=== PATIENT | male | born 1980 | race Caucasian/White ===

== ENCOUNTER 2016-06-24 08:50 | Emergency (ER) | payer SELFPAY ==
[2016-06-24 10:10] LABS: ABSOLUTE BASOPHILS # (AUTO) 0.1 10^3/uL (0.0-0.2); ABSOLUTE EOSINOPHILS # (AUTO) 0.3 10^3/uL (0.0-0.6); ABSOLUTE LYMPHOCYTES (AUTO) 2.5 10^3/uL (0.5-4.7); ABSOLUTE MONOCYTES (AUTO) 1.3 10^3/uL (0.1-1.4); ABSOLUTE NEUT (AUTO) 14.4 10^3/uL (1.7-8.2); BASOPHILS % (AUTO) 0.6 % (0-2); EOSINOPHILS % (AUTO) 1.7 % (0-6); HEMATOCRIT 46.8 % (37.9-51.0); HEMOGLOBIN 15.7 g/dL (13.5-17.0); HGB HCT DIFFERENCE 0.3; LYMPHOCYTES % (AUTO) 13.2 % (13-45); MEAN CORPUSCULAR HGB CONC 33.5 g/dL (32.0-36.0); MEAN CORPUSCULAR VOLUME 90 fl (80-97); MONOCYTES % (AUTO) 6.9 % (3-13); RED BLOOD COUNT 5.22 10^6/uL (4.35-5.55); RED CELL DISTRIBUTION WIDTH 13.8 % (11.5-14.0); SEGMENTED NEUTROPHILS % (AUTO) 77.6 % (42-78); WHITE BLOOD COUNT 18.6 10^3/uL (4.0-10.5)
[2016-06-24] MEDS ORDERED: HYDROMORPHONE HCL INJ/PF 2 MG/ML AMPULE IV ONE ×4 (10:19→13:34)
[2016-06-24] MEDS ORDERED: ONDANSETRON HCL INJ/PF 4 MG/2 ML SDV IV ONE (10:19)
[2016-06-24] MEDS: NORMAL SALINE 1000 ML 1,000 ML IV PRN ×3 (10:27→11:58)
[2016-06-24 10:33] LABS: ALANINE AMINOTRANSFERASE 47 U/L (21-72); ALBUMIN 3.7 g/dL (3.5-5.0); ALKALINE PHOSPHATASE 94 U/L (38-126); ANION GAP 13 (5-19); ASPARTATE AMINO TRANSFERASE 29 U/L (17-59); BILIRUBIN,TOTAL 1.1 mg/dL (0.2-1.3); BLOOD UREA NITROGEN 14 mg/dL (7-20); CALCIUM 9.9 mg/dL (8.4-10.2); CARBON DIOXIDE 21 mmol/L (22-30); CHLORIDE 107 mmol/L (98-107); CREATININE RESULT 0.91 mg/dL (0.52-1.25); GLUCOSE 115 mg/dL (75-110); POTASSIUM 4.2 mmol/L (3.6-5.0); SODIUM 140.7 mmol/L (137-145); TOTAL PROTEIN 6.9 g/dL (6.3-8.2)
[2016-06-24 10:49] LABS: LIPASE 3589.2 U/L (23-300)
[2016-06-24] MEDS ORDERED: NORMAL SALINE 1000 ML 1,000 ML IV PRN (10:54)
[2016-06-24] MEDS ORDERED: FAMOTIDINE INJ/PF 20 MG/2 ML SDV IV ONE (11:10)
--- NOTE | 2016-06-24 11:58 | ER Document Report ---
ED General - General Chief Complaint: Abdominal Pain Stated Complaint: FLANK PAIN Mode of Arrival: Ambulatory Information source: Patient Notes: 35-year-old male history of alcoholic pancreatitis presents with abd pain after drinking 2 days ago. pt denies any fevers or chills, denies any nausea or vomiting TRAVEL OUTSIDE OF THE [place] IN LAST 30 DAYS: No - HPI Onset: This morning Onset/Duration: Sudden Quality of pain: Sharp Severity: Mild Pain Level: 3 Associated symptoms: Other Exacerbated by: Denies Relieved by: Denies Similar symptoms previously: Yes Recently seen / treated by doctor: Yes - Related Data Allergies/Adverse Reactions: No Known Allergies Allergy (Verified 06/24/16 08:57) Past Medical History - Social History Smoking Status: Current Every Day Smoker Cigarette use (# per day): No Chew tobacco use (# tins/day): No Smoking Education Provided: No Frequency of alcohol use: Occasional Drug Abuse: None Family History: DM, Malignancy Patient has suicidal ideation: No Patient has homicidal ideation: No Renal/ Medical History: Denies: Hx Peritoneal Dialysis GI Medical History: Reports: Hx Gastroesophageal Reflux Disease Musculoskeltal Medical History: Reports Hx Musculoskeletal Deformity, Reports Hx Musculoskeletal Trauma Past Surgical History: Reports: Hx Orthopedic Surgery - left knee - Immunizations Immunizations up to date: Yes Hx Diphtheria, Pertussis, Tetanus Vaccination: Yes - over 5 years ago. Review of Systems - Review of Systems Notes: REVIEW OF SYSTEMS: CONSTITUTIONAL : Denies fever, chills, or sweats. Denies recent illness. EENT: Denies eye, ear, throat, or mouth pain or symptoms. Denies nasal or sinus congestion or discharge. Denies throat, tongue, or mouth swelling or difficulty swallowing. CARDIOVASCULAR: Denies chest pain. Denies palpitations or racing or irregular heart beat. Denies ankle edema. RESPIRATORY: Denies cough, cold, or chest congestion. Denies shortness of breath, difficulty breathing, or wheezing. GASTROINTESTINAL: admits ot abd pain GENITOURINARY: Denies difficulty urinating, painful urination, burning, frequency, blood in urine, or discharge. MUSCULOSKELETAL: Denies back or neck pain or stiffness. Denies joint pain or swelling. SKIN: Denies rash, lesions or sores. HEMATOLOGIC : Denies easy bruising or bleeding. LYMPHATIC: Denies swollen, enlarged glands. NEUROLOGICAL: Denies confusion or altered mental status. Denies passing out or loss of consciousness. Denies dizziness or lightheadedness. Denies headache. Denies weakness or paralysis or loss of use of either side. Denies problems with gait or speech. Denies sensory loss, numbness, or tingling. Denies seizures. PSYCHIATRIC: Denies anxiety or stress. Denies depression, suicidal ideation, or homicidal ideation. ALL OTHER SYSTEMS REVIEWED AND NEGATIVE. Dictation was performed using [employer] voice recognition software PHYSICAL EXAMINATION: GENERAL: Well-appearing, well-nourished and in no acute distress. HEAD: Atraumatic, normocephalic. EYES: Pupils equal round and reactive to light, extraocular movements intact, sclera anicteric, conjunctiva are normal. ENT: Nares patent, oropharynx clear without exudates. Moist mucous membranes. NECK: Normal range of motion, supple without lymphadenopathy LUNGS: Breath sounds clear to auscultation bilaterally and equal. No wheezes rales or rhonchi. HEART: Regular rate and rhythm without murmurs ABDOMEN: Soft, tenedr in the LUQ Musculoskeletal: Normal range of motion, no pitting or edema. No cyanosis. NEUROLOGICAL: Cranial nerves grossly intact. Normal speech, normal gait. Normal sensory, motor exams PSYCH: Normal mood, normal affect. SKIN: Warm, Dry, normal turgor, no rashes or lesions noted. Physical Exam - Vital signs Vitals: Temp Pulse Resp BP Pulse Ox 97.8 F 66 20 144/97 H 98 06/24/16 08:54 06/24/16 08:54 06/24/16 08:54 06/24/16 08:54 06/24/16 08:54 Course - Re-evaluation Re-evalutation: 06/24/16 11:59 Patient's white count is noted to be elevated secondary to pain, he will be hydrated given pain control emergency department otherwise has not been vomiting and is stable 06/24/16 13:34 Patient wishes to be discharged home, I did insisted that he consider admission but he refuses to stay. We'll do clear liquids at home After performing a Medical Screening Examination, I estimate there is LOW risk for ACUTE APPENDICITIS, BOWEL OBSTRUCTION, ACUTE CHOLECYSTITIS, PERFORATED DIVERTICULITIS, INCARCERATED HERNIA, or PERFORATED ULCER, thus I consider the discharge disposition reasonable. Also, there is no evidence or peritonitis, sepsis, or toxicity. The patient and I have discussed the diagnosis and risks, and we agree with discharging home with close follow-up with the understanding that symptoms and presentations can change. We also discussed returning to the Emergency Department immediately if new or worsening symptoms occur. We have discussed the symptoms which are most concerning (e.g., bloody stool, fever, changing or worsening pain, intractable vomiting - standard verbal up date) that necessitate immediate return. - Vital Signs Vital signs: Temp Pulse Resp BP Pulse Ox 97.8 F 66 20 144/97 H 98 06/24/16 08:54 06/24/16 08:54 06/24/16 08:54 06/24/16 08:54 06/24/16 08:54 - Laboratory Result Diagrams: 06/24/16 09:48 06/24/16 09:48 Laboratory results interpreted by me: 06/24/16 06/24/16 09:48 09:48 WBC 18.6 H Absolute Neutrophils 14.4 H Carbon Dioxide 21 L Glucose 115 H Lipase 3589.2 H Discharge - Discharge Clinical Impression: Alcohol cessation counseling Acute pancreatitis Qualifiers: Pancreatitis type: alcohol induced Acute pancreatitis complication: unspecified Qualified Code(s): K85.20 - Alcohol induced acute pancreatitis without necrosis or infection Abdominal pain Qualifiers: Abdominal location: left upper quadrant Qualified Code(s): R10.12 - Left upper quadrant pain Condition: Stable Disposition: HOME, SELF-CARE Instructions: Abdominal Pain ([facility]), Pancreatitis ([facility]) Prescriptions: Oxycodone HCl/Acetaminophen [Percocet 5-325 mg Tablet] 1 - 2 tab PO Q4H PRN #25 tablet PRN Reason: Promethazine HCl [Phenergan 25 mg Tablet] 1 - 2 tab PO Q6H PRN #15 tablet PRN Reason: Referrals: ROSA M BAKER MD [ACTIVE STAFF] - Follow up tomorrow
[2016-06-24 14:11] VITALS: BP 167/111
== END 2016-06-24 14:07 | disposition home or self-care (01) ==
LOC: ER 08:50
DX: K85.20 Alcohol induced acute pancreatitis without necrosis or infection (principal); R10.12 Left upper quadrant pain; F17.200 Nicotine dependence, unspecified, uncomplicated; Z87.19 Personal history of other diseases of the digestive system
CPT/HCPCS: 96376; 99284; 96361; 96374; 96375; 36415; 83690; 85025; 80053; J1170; J2405; J7030; S0028

== ENCOUNTER 2017-02-13 07:34 | Inpatient (IN) | payer SELFPAY ==
[2017-02-13] MEDS ORDERED: ONDANSETRON HCL INJ/PF 4 MG/2 ML SDV IV ONE (08:04)
[2017-02-13] MEDS ORDERED: NORMAL SALINE 1000 ML 1,000 ML IV ONE ×3 (08:04→12:39)
[2017-02-13] MEDS ORDERED: HYDROMORPHONE HCL INJ/PF 2 MG/ML AMPULE IV ONE ×3 (08:04→12:40)
--- NOTE | 2017-02-13 08:05 | ER Document Report ---
ED GI/ - General Chief Complaint: Abdominal Pain Stated Complaint: FLANK PAIN Time Seen by Provider: 02/13/17 07:57 Mode of Arrival: Ambulatory Information source: Patient Notes: Patient presents with a 2 day history of abdominal pain with nausea and vomiting. Patient states he is vomited about 4 times over the past 2 days. Patient denies any diarrhea, urinary symptoms, or fever. Patient states that he has had a history of pancreatitis in the past and suspects the same today. Patient states that he does drink beer daily but has not had any in the past few days due to his symptoms. TRAVEL OUTSIDE OF THE [place] IN LAST 30 DAYS: No - HPI Patient complains to provider of: Abdominal pain, Vomiting Onset: Other - 2 days Timing/Duration: Worse Quality of pain: Sharp Pain Level: 5 Location: Epigastric, Other - Umbilical Sexual history: Active Associated symptoms: Nausea, Vomiting. 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 Review of Systems - Review of Systems Constitutional: No symptoms reported. denies: Fever, Recent illness EENT: No symptoms reported Cardiovascular: No symptoms reported. denies: Chest pain Respiratory: No symptoms reported. denies: Cough, Short of breath Gastrointestinal: Abdominal pain, Nausea, Vomiting. denies: Diarrhea, Blood streaked bowels, Black stools, Rectal bleeding Genitourinary: No symptoms reported. denies: Dysuria, Flank pain Male Genitourinary: No symptoms reported Musculoskeletal: No symptoms reported Skin: No symptoms reported Hematologic/Lymphatic: No symptoms reported Neurological/Psychological: No symptoms reported Physical Exam - Vital signs Vitals: Temp Pulse Resp BP Pulse Ox 97.4 F 64 18 151/89 H 98 02/13/17 07:37 02/13/17 07:37 02/13/17 07:37 02/13/17 07:37 02/13/17 07:37 - General General appearance: Alert, Anxious In distress: Mild - HEENT Head: Normocephalic, Atraumatic Eyes: Normal Nasal: Normal Mouth/Lips: Normal Mucous membranes: Normal - Respiratory Respiratory status: No respiratory distress Chest status: Nontender Breath sounds: Normal. No: Rales, Rhonchi, Stridor, Wheezing Chest palpation: Normal - Cardiovascular Rhythm: Regular Heart sounds: S1 appreciated, S2 appreciated Murmur: No - Abdominal Inspection: Normal Distension: No distension Bowel sounds: Normal Tenderness: Tender - Right upper quadrant, epigastric tenderness, Guarding Organomegaly: No organomegaly - Back Back: Normal, Nontender. No: CVA tenderness - Extremities General upper extremity: Normal inspection, Normal ROM General lower extremity: Normal inspection, Normal ROM - Neurological Neuro grossly intact: Yes Cognition: Normal [place] Coma Scale Eye Opening: Spontaneous Gilda Coma Scale Verbal: Oriented [place] Coma Scale Motor: Obeys Commands Gilda Coma Scale Total: 15 - Psychological Associated symptoms: Normal affect, Normal mood - Skin Skin Temperature: Warm Skin Moisture: Dry Skin Color: Normal Course - Re-evaluation Re-evalutation: 02/13/17 09:[address] Hernandez who advises consultation with Dr. Jorgensen for admission 02/13/17 09:[address] Jorgensen who agrees to accept patient as IMCU admission - Vital Signs Vital signs: Temp Pulse Resp BP Pulse Ox 97.4 F 64 18 151/89 H 98 02/13/17 07:37 02/13/17 07:37 02/13/17 07:37 02/13/17 07:37 02/13/17 07:37 - Laboratory Result Diagrams: 02/13/17 08:18 02/13/17 08:18 Laboratory results interpreted by me: 02/13/17 02/13/17 02/13/17 08:13 08:18 08:18 WBC 25.0 H Hgb 17.1 H RDW 14.3 H Plt Count 455 H Seg Neuts % (Manual) 89 H Band Neutrophils % 1 L Lymphocytes % (Manual) 2 L Abs Neuts (Manual) 22.5 H Abs Monocytes (Manual) 1.8 H Sodium 135.7 L Chloride 94 L Carbon Dioxide 21 L Anion Gap 21 H BUN 44 H Creatinine 2.10 H Est GFR ( Amer) 43 L Est GFR (Non-Af Amer) 36 L Glucose 141 H Direct Bilirubin 0.7 H AST 64 H Alkaline Phosphatase 129 H Total Protein 9.9 H Albumin 5.3 H Lipase 2888.0 H Urine Protein 30 H Urine Ketones 20 H Discharge - Discharge Clinical Impression: Acute kidney injury Acute pancreatitis Qualifiers: Pancreatitis type: alcohol induced Acute pancreatitis complication: unspecified Qualified Code(s): K85.20 - Alcohol induced acute pancreatitis without necrosis or infection Leukocytosis Qualifiers: Leukocytosis type: unspecified Qualified Code(s): D72.829 - Elevated white blood cell count, unspecified Disposition: ADMITTED INPATIENT Admitting Provider: Hospitalist Unit Admitted: [facility]
[2017-02-13 08:41] LABS: HEMATOCRIT 47.6 % (37.9-51.0); HEMOGLOBIN 17.1 g/dL (13.5-17.0); HGB HCT DIFFERENCE 3.7; MEAN CORPUSCULAR HEMOGLOBIN 31.7 pg (27.0-33.4); MEAN CORPUSCULAR HGB CONC 35.8 g/dL (32.0-36.0); MEAN CORPUSCULAR VOLUME 88 fl (80-97); RED BLOOD COUNT 5.39 10^6/uL (4.35-5.55); RED CELL DISTRIBUTION WIDTH 14.3 % (11.5-14.0)
[2017-02-13 08:43] LABS: APPEARANCE,URINE SLIGHTLY-CLOUDY; BILIRUBIN,URINE NEGATIVE (NEGATIVE); GLUCOSE, URINE NEGATIVE (NEGATIVE); KETONES,URINE 20 mg/dL (NEGATIVE); LEUKOCYTE ESTERASE,URINE NEGATIVE (NEGATIVE); NITRITE,URINE NEGATIVE (NEGATIVE); PROTEIN,URINE 30 mg/dL (NEGATIVE); URINE SPECIFIC GRAVITY 1.021; UROBILINOGEN,URINE NEGATIVE mg/dL (<2.0)
--- NOTE | 2017-02-13 09:01 | RADIOLOGY REPORT (SQ) ---
EXAM DESCRIPTION: U/S ABDOMEN LIMITED W/O DOP COMPLETED DATE/TIME: 02/13/2017 8:40 am REASON FOR STUDY: upper abd pain, hx pancreatitis COMPARISON: 12/06/2015 TECHNIQUE: Dynamic and static grayscale images acquired of the abdomen and recorded on PACS. Additio rayne selected color Doppler and spectral images recorded. LIMITATIONS: None. FINDINGS: PANCREAS: No masses. Visualized pancreatic duct normal caliber. LIVER: No masses. Echotexture normal. LIVER VASCULATURE: Normal directional flow of the main portal vein and hepatic veins. GALLBLADDER: No stones. Normal wall thickness. No pericholecystic fluid. ULTRASOUND-DETECTED BURKETT'S SIGN: Negative. INTRAHEPATIC DUCTS AND COMMON DUCT: CBD and intrahepatic ducts normal caliber. No filling defects. INFERIOR VENA CAVA: Normal flow. AORTA: No aneurysm. RIGHT KIDNEY: Normal size. Normal echogenicity. No solid or suspicious masses. No hydronephrosis. No calcifications. PERITONEAL AND RIGHT PLEURAL SPACE: No ascites or effusions. OTHER: No other significant findings. IMPRESSION: NORMAL RIGHT UPPER QUADRANT ULTRASOUND. TECHNICAL DOCUMENTATION: JOB ID: [id number]- All Rights Reserved
[2017-02-13 09:10] LABS: BAND NEUTROPHILS % (MANUAL) 1 % (3-5); BASOPHILS % (MANUAL) 0 % (0-2); EOSINOPHILS % (MANUAL) 0 % (0-6); LYMPHOCYTES % (MANUAL) 2 % (13-45); TOTAL CELLS COUNTED 100
[2017-02-13 09:16] LABS: ANISOCYTOSIS SLIGHT; TOXIC GRANULATION 1+
[2017-02-13 09:23] LABS: ALANINE AMINOTRANSFERASE 27 U/L (21-72); ALBUMIN 5.3 g/dL (3.5-5.0); ALKALINE PHOSPHATASE 129 U/L (38-126); ASPARTATE AMINO TRANSFERASE 64 U/L (17-59); BILIRUBIN,DIRECT 0.7 mg/dL (0.0-0.4); BLOOD UREA NITROGEN 44 mg/dL (7-20); CALCIUM 10.1 mg/dL (8.4-10.2); CARBON DIOXIDE 21 mmol/L (22-30); CHLORIDE 94 mmol/L (98-107); GLUCOSE 141 mg/dL (75-110); SODIUM 135.7 mmol/L (137-145); TOTAL PROTEIN 9.9 g/dL (6.3-8.2)
[2017-02-13 09:30] LABS: ANION GAP 21 (5-19)
[2017-02-13] MEDS ORDERED: PROMETHAZINE HCL 25 MG SUPP.RECT PR PRN (09:55)
[2017-02-13] MEDS ORDERED: ACETAMINOPHEN 650 MG SUPP.RECT PR PRN (09:55)
[2017-02-13] MEDS ORDERED: ONDANSETRON HCL INJ/PF 4 MG/2 ML SDV IV PRN (09:55)
[2017-02-13] MEDS ORDERED: HYDROMORPHONE HCL INJ/PF 2 MG/ML AMPULE IV PRN (10:00)
[2017-02-13] MEDS: PANTOPRAZOLE SODIUM 40 MG VIAL IV SCH ×2 (10:33→22:05)
[2017-02-13] MEDS ORDERED: LORAZEPAM INJ 2 MG/1 ML VIAL IV ONE (12:39)
[2017-02-13] MEDS ORDERED: LORAZEPAM INJ 2 MG/1 ML VIAL ONE (12:46)
[2017-02-13] MEDS ORDERED: HYDROMORPHONE HCL INJ/PF 2 MG/ML AMPULE ONE (12:47)
[2017-02-13] MEDS ORDERED: NICOTINE 21 MG/24 HR PATCH.TD24 TD ONE (15:00)
--- NOTE | 2017-02-13 15:01 | PDOC H&P ---
History of Present Illness Admission Date/PCP: 02/13/17 09:55 no pcp History of Present Illness: KANDI BURNS III is a 36 year old male with a past medical history significant for prior alcoholic pancreatitis who presents to the emergency department with 2 or 3 days of nausea, vomiting and midepigastric pain. He reports it radiates through to his back. He reports that significant vomiting episodes with this. An attempt to control his symptoms he was taking between 600 and 800 mg of Motrin 3 times daily. Patient reports that he drinks 1 beer daily, but his significant other confides to nursing that he drinks a minimum of 4 beers daily. He has not been able to drink since the onset of this pain. Patient was found in the emergency department to have a lipase of 2888 and acute renal failure with a BUN of 44 and a creatinine of 2.1. He is referred to the hospitalist service for admission. Past Medical History GI Medical History: Reports: Gastroesophageal Reflux Disease, Other - pancreatitis Psychiatric Medical History: Reports: Alcohol Dependency Past Surgical History Past Surgical History: Reports: Orthopedic Surgery - left knee Social History Lives with: Family Smoking Status: Current Every Day Smoker Cigarettes Packs Per Day: 1 Number of Years Smokin Frequency of Alcohol Use: Heavy Hx Recreational Drug Use: No Drugs: None Hx Prescription Drug Abuse: No - Advance Directive Resuscitation Status: Full Code Surrogate healthcare decision maker:: Iwona Menezes, significant other Family History Family History: DM, Malignancy Parental Family History Reviewed: Yes Children Family History Reviewed: Yes Sibling(s) Family History Reviewed.: Yes Medication/Allergy Home Medications: Ibuprofen [Ibuprofen Ib] 800 mg PO DAILYP PRN 02/13/17 Allergies/Adverse Reactions: No Known Allergies Allergy (Verified 06/24/16 08:57) Review of Systems Constitutional: ABSENT: chills, fever(s), headache(s), weight gain, weight loss Eyes: ABSENT: visual disturbances Ears: ABSENT: hearing changes Cardiovascular: ABSENT: chest pain, dyspnea on exertion, edema, orthropnea, palpitations Respiratory: ABSENT: cough, hemoptysis Gastrointestinal: PRESENT: abdominal pain, heartburn, nausea, vomiting. ABSENT : constipation, diarrhea, hematemesis, hematochezia, melena Genitourinary: ABSENT: dysuria, hematuria Musculoskeletal: ABSENT: joint swelling Integumentary: ABSENT: rash, wounds Neurological: ABSENT: abnormal gait, abnormal speech, confusion, dizziness, focal weakness, syncope Psychiatric: ABSENT: anxiety, depression, homidical ideation, suicidal ideation Endocrine: ABSENT: cold intolerance, heat intolerance, polydipsia, polyuria Hematologic/Lymphatic: ABSENT: easy bleeding, easy bruising Physical Exam Vital Signs: Temp Pulse Resp BP Pulse Ox 97.7 F 55 L 22 H 176/95 H 97 02/13/17 11:16 02/13/17 11:16 02/13/17 11:08 02/13/17 11:16 02/13/17 11:16 Intake & Output 02/12/17 02/13/17 02/14/17 06:59 06:59 06:59 Weight 75.7 kg General appearance: PRESENT: mild distress - Pain, well-developed, well- nourished Head exam: PRESENT: atraumatic, normocephalic Eye exam: PRESENT: conjunctiva pink, EOMI, PERRLA. ABSENT: conjunctival injection, scleral icterus Ear exam: PRESENT: normal external ear exam Mouth exam: PRESENT: dry mucosa, tongue midline Neck exam: ABSENT: JVD, lymphadenopathy, thyromegaly, tracheal deviation Respiratory exam: PRESENT: clear to auscultation lupis, tachypnea, unlabored. ABSENT: accessory muscle use, crackles, rales, retraction, rhonchi, wheezes Cardiovascular exam: PRESENT: RRR, +S1, +S2. ABSENT: diastolic murmur, gallop, rubs, systolic murmur Pulses: PRESENT: normal dorsalis pedis pul Vascular exam: PRESENT: normal capillary refill GI/Abdominal exam: PRESENT: guarding - Voluntary, hypoactive bowel sounds, soft , tenderness - Significant diffuse tenderness, localized to mid epigastrium and right upper quadrant. ABSENT: distended, firm, mass, organolmegaly, rebound Rectal exam: PRESENT: deferred Extremities exam: PRESENT: full ROM. ABSENT: calf tenderness, clubbing, pedal edema Neurological exam: PRESENT: alert, awake, oriented to person, oriented to place , oriented to time, oriented to situation, CN II-XII grossly intact. ABSENT: motor sensory deficit Psychiatric exam: PRESENT: appropriate affect, normal mood. ABSENT: homicidal ideation, suicidal ideation Skin exam: PRESENT: dry, intact, warm. ABSENT: cyanosis, rash Results Laboratory Results: 02/13/17 02/13/17 02/13/17 08:18 08:18 08:18 WBC 25.0 H Hgb 17.1 H Hct 47.6 Plt Count 455 H Seg Neuts % (Manual) 89 H Sodium 135.7 L Potassium 4.0 Chloride 94 L Carbon Dioxide 21 L Anion Gap 21 H BUN 44 H Creatinine 2.10 H Glucose 141 H POC Glucose Calcium 10.1 Magnesium 2.5 H Total Bilirubin 1.0 Direct Bilirubin 0.7 H AST 64 H ALT 27 Alkaline Phosphatase 129 H Total Protein 9.9 H Albumin 5.3 H Lipase 2888.0 H 02/13/17 12:18 WBC Hgb Hct Plt Count Seg Neuts % (Manual) Sodium Potassium Chloride Carbon Dioxide Anion Gap BUN Creatinine Glucose POC Glucose 139 H Calcium Magnesium Total Bilirubin Direct Bilirubin AST ALT Alkaline Phosphatase Total Protein Albumin Lipase 05/06/16 07:18 Triglycerides 190 H Impressions: Abdomen Ultrasound 02/13/17 08:03 IMPRESSION: NORMAL RIGHT UPPER QUADRANT ULTRASOUND. Status: Imported from PACS Assessment & Plan - Diagnosis (1) Acute alcoholic pancreatitis Qualifiers: Acute pancreatitis complication: unspecified Qualified Code(s): K85.20 - Alcohol induced acute pancreatitis without necrosis or infection Is this a current diagnosis for this admission?: Yes Plan: Patient's pancreatitis secondary to alcohol abuse. Patient had triglycerides done approximately 1 year ago for similar episode and were mildly elevated. Patient has had ultrasound performed which does not reveal any gallstones. Place patient on IMCU. Monitor for arrhythmia. Patient's [place] 2 score equals 4 and his Bisap score equals 2. Will obtain an LDH and monitor patient's Mira score. Obtain a CRP. Patient made n.p.o. and given Dilaudid as needed pain.He has been given normal saline for IV fluids. Given patient's presence of sirs have concern for underlying pancreatic necrosis. Obtain blood cultures and urine culture. Initiated on ertapenem. And obtain CT of the abdomen without contrast. (2) SIRS (systemic inflammatory response syndrome) Is this a current diagnosis for this admission?: Yes Plan: Criteria: Selected Entries 02/13/17 07:40 Pulse Rate 93 02/13/17 08:18 WBC 25.0 H Given patient's presence of sirs have concern for underlying pancreatic necrosis +/- infection. Obtain blood cultures and urine culture. Initiated on ertapenem. And obtain CT of the abdomen without contrast. (3) Acute renal failure Qualifiers: Acute renal failure type: unspecified Qualified Code(s): N17.9 - Acute kidney failure, unspecified Is this a current diagnosis for this admission?: Yes Plan: Secondary to dehydration, but given the amount of ibuprofen patient has been taking, have concerns for acute interstitial nephritis. Will obtain urine eosinophils. Continue hydration. Further complicated by underlying pancreatitis (4) Tobacco abuse Is this a current diagnosis for this admission?: Yes Plan: Nicotine patch (5) Alcohol abuse Is this a current diagnosis for this admission?: Yes Plan: Thiamine, folic acid, multivitamin Ativan as needed withdrawal (6) Hyponatremia Is this a current diagnosis for this admission?: Yes Plan: Secondary to intravascular volume depletion placed on normal saline (7) Impaired fasting glucose Is this a current diagnosis for this admission?: Yes Plan: Check hemoglobin A1c Family history of diabetes - Time Time Spent: 50 to 70 Minutes Medications reviewed and adjusted accordingly: Yes - Inpatient Certification Based on my medical assessment, after consideration of the patient's comorbidities, presenting symptoms, or acuity I expect that the services needed warrant INPATIENT care.: Yes I certify that my determination is in accordance with my understanding of Medicare's requirements for reasonable and necessary INPATIENT services [42 CFR 412.3e].: Yes Medical Necessity: Need For IV Fluids, Need For Continuous Telemetry Monitoring , Need for Pain Control, Need for IV Antibiotics Post Hospital Care: D/C Car 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
[2017-02-13] MEDS: HEPARIN SOD (PORCINE) 5,000 UNIT/ML 1 ML SYRINGE SUBCUT SCH ×2 (15:36→22:05)
[2017-02-13 15:38] LABS: C-REACTIVE PROTEIN 15.5 mg/L (<10.0)
[2017-02-13] MEDS: ERTAPENEM SODIUM 1 GM in NORMAL SALINE 50 ML IV SCH (15:40)
[2017-02-13] MEDS: NORMAL SALINE 1000 ML 1,000 ML IV PRN ×2 (15:42→20:58)
--- NOTE | 2017-02-13 15:45 | RADIOLOGY REPORT (SQ) ---
EXAM DESCRIPTION: CT ABD/PELVIS NO ORAL OR IV COMPLETED DATE/TIME: 02/13/2017 3:24 pm REASON FOR STUDY: pancreatic necrosis COMPARISON: None. TECHNIQUE: CT scan of the abdomen and pelvis performed without intravenous or oral contrast. Images reviewed with lung, soft tissue, and bone windows. Reconstructed coronal and sagittal MPR images revi ewed. All images stored on PACS. All CT scanners at this facility use dose modulation, iterative reconstruction, and/or weight based d osing when appropriate to reduce radiation dose to as low as reasonably achievable (ALARA). [facility]: Dose Right [facility]: CareDose [facility]: Dose Right [facility]: Teradose 4D [facility]: Smart Learn with [place] RADIATION DOSE: Up-to-date CT equipment and radiation dose reduction techniques were employed. CTDIv ol: 4.1 mGy. DLP: 239 mGy-cm.mGy. LIMITATIONS: Patient motion. FINDINGS: LOWER CHEST: No significant findings. No nodules or infiltrates. NON-CONTRASTED LIVER, SPLEEN, ADRENALS: Evaluation limited by lack of IV contrast. No identified sign ificant masses. PANCREAS: Inflammatory changes surrounding the pancreas. No obvious necrosis however sensitivity is lower without intravenous contrast. No obvious pseudocyst. GALLBLADDER: No identified stones by CT criteria. No inflammatory changes to suggest cholecystitis. RIGHT KIDNEY AND URETER: No suspicious masses. Assessment limited by lack of IV contrast. No signif icant calcifications. No hydronephrosis or hydroureter. LEFT KIDNEY AND URETER: No suspicious masses. Assessment limited by lack of IV contrast. 1 mm renal calculus. No hydronephrosis or hydroureter. AORTA AND RETROPERITONEUM: No aneurysm. No retroperitoneal masses or adenopathy. BOWEL AND PERITONEAL CAVITY: No obvious masses or inflammatory changes. No free fluid. APPENDIX: Not visualized. PELVIS, BLADDER, AND ABDOMINAL WALL:No abnormal masses. No free fluid. Bladder normal. BONES: No significant findings. OTHER: No other significant finding. IMPRESSION: Acute pancreatitis. COMMENT: Quality ID # [id number]: Final reports with documentation of one or more dose reduction techniques (e.g., Automated exposure control, adjustment of the mA and/or kV according to patient size, use of iterative reconstruction technique) TECHNICAL DOCUMENTATION: JOB ID: [id number]- All Rights Reserved
[2017-02-13] MEDS: HYDROMORPHONE HCL INJ/PF 2 MG/ML AMPULE IV PRN ×4 (15:54→22:33)
[2017-02-13] MEDS: NORMAL SALINE 1000 ML 1,000 ML with POTASSIUM CHLORIDE 20 MEQ, MAGNESIUM SULFATE 8 MEQ,... IV SCH ×5 (17:50)
[2017-02-14] MEDS: HYDROMORPHONE HCL INJ/PF 2 MG/ML AMPULE IV PRN ×7 (00:27→20:13)
[2017-02-14] MEDS: NORMAL SALINE 1000 ML 1,000 ML IV PRN ×3 (01:01→12:58)
[2017-02-14] MEDS: LORAZEPAM INJ 2 MG/1 ML VIAL IV PRN ×3 (01:01→17:45)
[2017-02-14 05:21] LABS: HEMATOCRIT 46.7 % (37.9-51.0); HEMOGLOBIN 16.2 g/dL (13.5-17.0); HGB HCT DIFFERENCE 1.9; MEAN CORPUSCULAR HEMOGLOBIN 31.5 pg (27.0-33.4); MEAN CORPUSCULAR HGB CONC 34.7 g/dL (32.0-36.0); MEAN CORPUSCULAR VOLUME 91 fl (80-97); RED BLOOD COUNT 5.15 10^6/uL (4.35-5.55); RED CELL DISTRIBUTION WIDTH 14.1 % (11.5-14.0); WHITE BLOOD COUNT 22.3 10^3/uL (4.0-10.5)
[2017-02-14] MEDS: HEPARIN SOD (PORCINE) 5,000 UNIT/ML 1 ML SYRINGE SUBCUT SCH ×3 (05:30→21:49)
[2017-02-14 05:34] LABS: BASOPHILS % (MANUAL) 0 % (0-2); EOSINOPHILS % (MANUAL) 0 % (0-6); LYMPHOCYTES % (MANUAL) 0 % (13-45); TOTAL CELLS COUNTED 100
[2017-02-14 05:35] LABS: ANISOCYTOSIS SLIGHT; TOXIC GRANULATION 1+
[2017-02-14 06:12] LABS: ALANINE AMINOTRANSFERASE 22 U/L (21-72); ALBUMIN 3.5 g/dL (3.5-5.0); ALKALINE PHOSPHATASE 83 U/L (38-126); ANION GAP 9 (5-19); ASPARTATE AMINO TRANSFERASE 18 U/L (17-59); BILIRUBIN,DIRECT 0.4 mg/dL (0.0-0.4); BILIRUBIN,TOTAL 0.8 mg/dL (0.2-1.3); CALCIUM 8.9 mg/dL (8.4-10.2); CARBON DIOXIDE 25 mmol/L (22-30); CHLORIDE 106 mmol/L (98-107); CREATININE RESULT 0.72 mg/dL (0.52-1.25); GLUCOSE 120 mg/dL (75-110); POTASSIUM 4.9 mmol/L (3.6-5.0); TOTAL PROTEIN 6.5 g/dL (6.3-8.2)
[2017-02-14 06:24] LABS: BLOOD UREA NITROGEN 17 mg/dL (7-20)
[2017-02-14] MEDS: NICOTINE 21 MG/24 HR PATCH.TD24 TD SCH (09:44)
[2017-02-14] MEDS: PANTOPRAZOLE SODIUM 40 MG VIAL IV SCH ×2 (09:44→21:49)
--- NOTE | 2017-02-14 12:44 | PDOC PROGRESS REPORT ---
Subjective Progress Note for:: 02/14/17 Subjective:: Patient continues to complain of abdominal pain. He requests something to eat and I have informed him why he is NPO. Patient denies chest pain, shortness of breath, nausea, vomiting, fevers, chills , diarrhea, constipation, headache, new onset weakness. Physical Exam Vital Signs: Temp Pulse Resp BP Pulse Ox 97.8 F 93 19 155/87 H 93 02/14/17 03:56 02/14/17 03:56 02/14/17 03:56 02/14/17 03:56 02/14/17 03:56 Intake & Output 02/13/17 02/14/17 02/15/17 06:59 06:59 06:59 Intake Total 3878 Output Total 1335 Balance 2543 Weight 75.7 kg Exam: General: In mild pain, Awake alert and oriented x3, no acute respiratory distress HEENT: AT/NC, PERRL, EOMI, oropharynx is moist, pink, no scleral icterus, no conjunctival injection Neck: No JVD, trachea midline Chest: Clear to auscultation bilaterally, no wheezes rhonchi or rales CV: Regular rate and rhythm, normal S1 and S2, no murmur, rub, or gallop Abdomen: Soft, TTP-teofilo and RUQ, nondistended, hypoactive bowel sounds; no rebound, rigidity; voluntary guarding Extremities: No cyanosis, clubbing or edema Neuro: Cranial nerves II through XII are grossly intact without focal deficits; awake alert and oriented x3, mildly tremulous Psych: Normal mood and affect Results Laboratory Results: 02/14/17 04:26 02/14/17 05:41 02/13/17 02/14/17 02/14/17 14:59 04:26 04:26 WBC 22.3 H RBC 5.15 Hgb 16.2 Hct 46.7 MCV 91 MCH 31.5 MCHC 34.7 RDW 14.1 H Plt Count 306 Seg Neutrophils % Not Reportable Lymphocytes % Not Reportable Monocytes % Not Reportable Eosinophils % Not Reportable Basophils % Not Reportable Absolute Neutrophils Not Reportable Absolute Lymphocytes Not Reportable Absolute Monocytes Not Reportable Absolute Eosinophils Not Reportable Absolute Basophils Not Reportable Sodium Cancelled Potassium Cancelled Chloride Cancelled Carbon Dioxide Cancelled Anion Gap Cancelled BUN Cancelled Creatinine Cancelled Est GFR ( Amer) Cancelled Est GFR (Non-Af Amer) Cancelled Glucose Cancelled Calcium Cancelled Magnesium Cancelled Total Bilirubin Cancelled AST Cancelled ALT Cancelled Alkaline Phosphatase Cancelled C-Reactive Protein 15.5 H Total Protein Cancelled Albumin Cancelled 02/14/17 05:41 WBC RBC Hgb Hct MCV MCH MCHC RDW Plt Count Seg Neutrophils % Lymphocytes % Monocytes % Eosinophils % Basophils % Absolute Neutrophils Absolute Lymphocytes Absolute Monocytes Absolute Eosinophils Absolute Basophils Sodium 140.0 Potassium 4.9 Chloride 106 Carbon Dioxide 25 Anion Gap 9 BUN 17 D Creatinine 0.72 Est GFR ( Amer) > 60 Est GFR (Non-Af Amer) > 60 Glucose 120 H Calcium 8.9 Magnesium 2.0 Total Bilirubin 0.8 AST 18 ALT 22 Alkaline Phosphatase 83 C-Reactive Protein Total Protein 6.5 Albumin 3.5 Impressions: Abdomen/Pelvis CT 02/13/17 00:00 IMPRESSION: Acute pancreatitis. Abdomen Ultrasound 02/13/17 08:03 IMPRESSION: NORMAL RIGHT UPPER QUADRANT ULTRASOUND. Assessment & Plan - Diagnosis (1) Acute alcoholic pancreatitis Qualifiers: Acute pancreatitis complication: unspecified Qualified Code(s): K85.20 - Alcohol induced acute pancreatitis without necrosis or infection Is this a current diagnosis for this admission?: Yes Plan: Patient's pancreatitis secondary to alcohol abuse. Patient had triglycerides done approximately 1 year ago for similar episode and were mildly elevated. Patient has had ultrasound performed which does not reveal any gallstones. Patient's [place] 2 score equals 2 and his Bisap score equals 1. Patient made n.p.o. and use Dilaudid as needed pain. On NS for fluids. On ertapenem day#2. Uncontrasted CT reveals pancreatitis. Patient pain mildly out of proportion to physical exam and can be redirected. (2) SIRS (systemic inflammatory response syndrome) Is this a current diagnosis for this admission?: Yes Plan: Criteria: Selected Entries 02/13/17 07:40 Pulse Rate 93 02/13/17 08:18 WBC 25.0 H Given patient's presence of sirs have concern for underlying pancreatic necrosis +/- infection. On Ertapenem day #2. (3) Acute renal failure Qualifiers: Acute renal failure type: unspecified Qualified Code(s): N17.9 - Acute kidney failure, unspecified Is this a current diagnosis for this admission?: Yes Plan: resolved / #1 (4) Tobacco abuse Is this a current diagnosis for this admission?: Yes Plan: Nicotine patch (5) Alcohol abuse Is this a current diagnosis for this admission?: Yes Plan: Thiamine, folic acid, multivitamin Ativan as needed withdrawal (6) Hyponatremia Is this a current diagnosis for this admission?: Yes Plan: Improved Secondary to intravascular volume depletion placed on normal saline (7) Impaired fasting glucose Is this a current diagnosis for this admission?: Yes Plan: Hgb A1c 5 - Time Time Spent with patient: 25-34 minutes Medications reviewed and adjusted accordingly: Yes Anticipated discharge: Home Within: within 72 hours
[2017-02-14] MEDS: ERTAPENEM SODIUM 1 GM in NORMAL SALINE 50 ML IV SCH (13:31)
[2017-02-14] MEDS: NORMAL SALINE 1000 ML 1,000 ML with POTASSIUM CHLORIDE 20 MEQ, MAGNESIUM SULFATE 8 MEQ,... IV SCH ×5 (17:11)
[2017-02-15] MEDS: HYDROMORPHONE HCL INJ/PF 2 MG/ML AMPULE IV PRN ×6 (01:07→20:09)
[2017-02-15 06:04] LABS: ALANINE AMINOTRANSFERASE 14 U/L (21-72); ALKALINE PHOSPHATASE 75 U/L (38-126); ANION GAP 10 (5-19); ASPARTATE AMINO TRANSFERASE 20 U/L (17-59); BILIRUBIN,DIRECT 0.5 mg/dL (0.0-0.4); BILIRUBIN,TOTAL 0.9 mg/dL (0.2-1.3); BLOOD UREA NITROGEN 10 mg/dL (7-20); CALCIUM 8.3 mg/dL (8.4-10.2); CARBON DIOXIDE 20 mmol/L (22-30); CHLORIDE 110 mmol/L (98-107); CREATININE RESULT 0.63 mg/dL (0.52-1.25); GLUCOSE 85 mg/dL (75-110); LDH 451 U/L (313-618); PHOSPHORUS 1.7 mg/dL (2.5-4.5); SODIUM 140.4 mmol/L (137-145)
[2017-02-15 06:05] LABS: ABSOLUTE BASOPHILS # (AUTO) 0.1 10^3/uL (0.0-0.2); ABSOLUTE LYMPHOCYTES (AUTO) 1.5 10^3/uL (0.5-4.7); ABSOLUTE MONOCYTES (AUTO) 1.4 10^3/uL (0.1-1.4); BASOPHILS % (AUTO) 0.3 % (0-2); EOSINOPHILS % (AUTO) 0.1 % (0-6); HEMATOCRIT 42.2 % (37.9-51.0); HEMOGLOBIN 14.6 g/dL (13.5-17.0); HGB HCT DIFFERENCE 1.6; MEAN CORPUSCULAR HEMOGLOBIN 31.3 pg (27.0-33.4); MEAN CORPUSCULAR HGB CONC 34.6 g/dL (32.0-36.0); MEAN CORPUSCULAR VOLUME 90 fl (80-97); MONOCYTES % (AUTO) 7.6 % (3-13); RED BLOOD COUNT 4.67 10^6/uL (4.35-5.55); RED CELL DISTRIBUTION WIDTH 14.3 % (11.5-14.0)
[2017-02-15] MEDS: HEPARIN SOD (PORCINE) 5,000 UNIT/ML 1 ML SYRINGE SUBCUT SCH ×3 (06:15→22:43)
[2017-02-15 06:46] LABS: C-REACTIVE PROTEIN 156.6 mg/L (<10.0)
[2017-02-15 06:51] LABS: POTASSIUM 3.7 mmol/L (3.6-5.0)
[2017-02-15] MEDS ORDERED: POTASSIUM PHOS,M-BASIC-D-BASIC 60 MMOL in NORMAL SALINE 1000 ML 1,000 ML IV ONE (07:05)
[2017-02-15] MEDS: NORMAL SALINE 1000 ML 1,000 ML IV PRN (07:51)
[2017-02-15] MEDS ORDERED: NORMAL SALINE 1000 ML 1,000 ML IV ONE (09:15)
[2017-02-15] MEDS: PANTOPRAZOLE SODIUM 40 MG VIAL IV SCH ×2 (10:41→22:43)
[2017-02-15] MEDS: NICOTINE 21 MG/24 HR PATCH.TD24 TD SCH (10:41)
[2017-02-15] MEDS: LORAZEPAM INJ 2 MG/1 ML VIAL IV PRN (10:41)
--- NOTE | 2017-02-15 10:55 | RADIOLOGY REPORT (SQ) ---
EXAM DESCRIPTION: CT ABD/PELVIS WITH IV ONLY COMPLETED DATE/TIME: 02/15/2017 10:40 am REASON FOR STUDY: necrotic pancreatitis COMPARISON: 02/13/2017 and 05/05/2016. TECHNIQUE: CT scan of the abdomen and pelvis performed using helical scanning technique with dynamic intravenous contrast injection. No oral contrast. Images reviewed with lung, soft tissue, and bone windows. Reconstructed coronal and sagittal MPR images reviewed. Delayed images for evaluation of the urinary system also acquired. All images stored on PACS. All CT scanners at this facility use dose modulation, iterative reconstruction, and/or weight based d osing when appropriate to reduce radiation dose to as low as reasonably achievable (ALARA). [facility]: Dose Right [facility]: CareDose [facility]: Dose Right [facility]: Teradose 4D [facility]: DailyLook CONTRAST TYPE AND DOSE: contrast/concentration: Isovue 370.00 mg/ml; Total Contrast Delivered: 81.0 ml; Total Saline Delivered: 42.0 ml RENAL FUNCTION: BUN 10 creatinine 0.63. RADIATION DOSE: Up-to-date CT equipment and radiation dose reduction techniques were employed. CTDIv ol: 6.0 - 8.5 mGy. DLP: 817 mGy-cm.. LIMITATIONS: None. FINDINGS: LOWER CHEST: Lower lobe infiltrates, left greater than right. LIVER: Normal size. Attenuation area in the left lobe, possibly a cyst or focal fatty replacement. No enhancing masses. No dilated ducts. SPLEEN: Normal size. No focal lesions. PANCREAS: Indistinct appearance of the pancreas with peripancreatic inflammation and fluid. Indistin ct area of low-attenuation in the pancreatic head measuring approximately 1 cm GALLBLADDER: No identified stones by CT criteria. No inflammatory changes to suggest cholecystitis. ADRENAL GLANDS: No significant masses or asymmetry. RIGHT KIDNEY AND URETER: No solid masses. No significant calcifications. No hydronephrosis or hyd roureter. LEFT KIDNEY AND URETER: No solid masses. No significant calcifications. No hydronephrosis or hydr oureter. AORTA AND VESSELS: No aneurysm. No dissection. Renal arteries, SMA, celiac without stenosis. RETROPERITONEUM: No retroperitoneal adenopathy, hemorrhage or masses. BOWEL AND PERITONEAL CAVITY: No masses or inflammatory changes. Small amount free fluid. APPENDIX: Not visualized. PELVIS: No mass. Free fluid in the lower pelvis. Normal bladder. ABDOMINAL WALL: No masses. No hernias. BONES: No significant or acute findings. OTHER: No other significant finding. IMPRESSION: 1. FINDINGS OF ACUTE PANCREATITIS. INDISTINCT AREA OF DECREASED ATTENUATION/NONENHANCEMENT IN THE PA NCREATIC HEAD COULD REPRESENT DEVELOPING CYST. SMALL FOCAL AREA OF NECROSIS COULD ALSO BE PRESENT. FREE FLUID IN THE ABDOMEN AND PELVIS SECONDARY TO PANCREATITIS. 2. NONENHANCING LOW-ATTENUATION AREA IN THE LEFT LOBE OF THE LIVER, POSSIBLY A CYST OR FOCAL FATTY RE PLACEMENT. 3. NO OTHER SIGNIFICANT OR ACUTE FINDING IN THE ABDOMEN OR PELVIS ON CT SCAN WITH IV CONTRAST. TECHNICAL DOCUMENTATION: JOB ID: [id number] Quality ID # [id number]: Final reports with documentation of one or more dose reduction techniques (e.g., Au tomated exposure control, adjustment of the mA and/or kV according to patient size, use of iterative reconstruction technique) 2010 [employer]- All Rights Reserved
[2017-02-15] MEDS: POTASSI CL 20 MEQ/D5-1/2NS 1L 1,000 ML IV PRN ×2 (12:54→20:09)
[2017-02-15] MEDS: ERTAPENEM SODIUM 1 GM in NORMAL SALINE 50 ML IV SCH (14:04)
--- NOTE | 2017-02-15 14:33 | PDOC PROGRESS REPORT ---
Subjective Progress Note for:: 02/15/17 Subjective:: Patient continues to complain of abdominal pain. He reports his pain is better controlled with the increased amount of Dilaudid. He is not passing flatus. Patient denies chest pain, shortness of breath, nausea, vomiting, fevers, chills , diarrhea, constipation, headache, new onset weakness. Physical Exam Vital Signs: Temp Pulse Resp BP Pulse Ox 98.3 F 104 H 16 150/86 H 94 02/14/17 23:29 02/15/17 02:00 02/14/17 23:29 02/14/17 23:29 02/14/17 23:29 Intake & Output 02/14/17 02/15/17 02/16/17 06:59 06:59 06:59 Intake Total 3878 6028 Output Total 1335 600 Balance 2543 5428 Weight 75.7 kg Exam: General: Awake alert and oriented x3, no acute respiratory distress HEENT: AT/NC, PERRL, EOMI, oropharynx is moist, pink, no scleral icterus, no conjunctival injection Neck: No JVD, trachea midline Chest: Clear to auscultation bilaterally, no wheezes rhonchi or rales CV: Regular rate and rhythm, normal S1 and S2, no murmur, rub, or gallop Abdomen: Soft, TTP-teofilo and RUQ, nondistended, hypoactive bowel sounds; no rebound, rigidity; voluntary guarding Extremities: No cyanosis, clubbing or edema Neuro: Cranial nerves II through XII are grossly intact without focal deficits; awake alert and oriented x3 Psych: Normal mood and affect Results Laboratory Results: 02/15/17 05:29 02/15/17 05:29 02/15/17 02/15/17 05:29 05:29 WBC 19.0 H RBC 4.67 Hgb 14.6 Hct 42.2 MCV 90 MCH 31.3 MCHC 34.6 RDW 14.3 H Plt Count 233 Seg Neutrophils % 84.0 H Lymphocytes % 8.0 L Monocytes % 7.6 Eosinophils % 0.1 Basophils % 0.3 Absolute Neutrophils 16.0 H Absolute Lymphocytes 1.5 Absolute Monocytes 1.4 Absolute Eosinophils 0.0 Absolute Basophils 0.1 Sodium 140.4 Potassium 3.7 D Chloride 110 H Carbon Dioxide 20 L Anion Gap 10 BUN 10 Creatinine 0.63 Est GFR ( Amer) > 60 Est GFR (Non-Af Amer) > 60 Glucose 85 Calcium 8.3 L Phosphorus 1.7 L Magnesium 2.0 Total Bilirubin 0.9 AST 20 ALT 14 L Alkaline Phosphatase 75 C-Reactive Protein 156.6 H Total Protein 6.0 L Albumin 3.0 L Impressions: Abdomen/Pelvis CT 02/13/17 00:00 IMPRESSION: Acute pancreatitis. Abdomen Ultrasound 02/13/17 08:03 IMPRESSION: NORMAL RIGHT UPPER QUADRANT ULTRASOUND. Assessment & Plan - Diagnosis (1) Acute alcoholic pancreatitis Qualifiers: Acute pancreatitis complication: unspecified Qualified Code(s): K85.20 - Alcohol induced acute pancreatitis without necrosis or infection Is this a current diagnosis for this admission?: Yes Plan: Patient made n.p.o. and use Dilaudid as needed pain. On NS for fluids. Patient's pancreatitis secondary to alcohol abuse. Patient had triglycerides done approximately 1 year ago for similar episode and were mildly elevated. Patient has had ultrasound performed which does not reveal any gallstones. Uncontrasted CT reveals pancreatitis. Patient's [place] 2 score equals 1 and his Bisap score equals 1 , [place] score 3. CRP 156 Acute severe pancreatitis with concern for necrotizing pancreatitis. Plan to repeat patient CT with contrast. On ertapenem day#3. (2) SIRS (systemic inflammatory response syndrome) Is this a current diagnosis for this admission?: Yes Plan: Criteria: Selected Entries 02/13/17 07:40 Pulse Rate 93 02/13/17 08:18 WBC 25.0 H Given patient's presence of sirs have concern for underlying pancreatic necrosis +/- infection. On Ertapenem day #3. Plan to repeat CT abd/pelvis with contrast (3) Acute renal failure Qualifiers: Acute renal failure type: unspecified Qualified Code(s): N17.9 - Acute kidney failure, unspecified Is this a current diagnosis for this admission?: Yes Plan: resolved 2/ #1 (4) Tobacco abuse Is this a current diagnosis for this admission?: Yes Plan: Nicotine patch (5) Alcohol abuse Is this a current diagnosis for this admission?: Yes Plan: Thiamine, folic acid, multivitamin Ativan as needed withdrawal (6) Hyponatremia Is this a current diagnosis for this admission?: Yes Plan: Improved Secondary to intravascular volume depletion placed on normal saline (7) Impaired fasting glucose Is this a current diagnosis for this admission?: Yes Plan: Hgb A1c 5 - Time Time Spent with patient: 25-34 minutes Medications reviewed and adjusted accordingly: Yes Anticipated discharge: Home Within: Other - Upon improvement of patient's symptomatology
[2017-02-15] MEDS: NORMAL SALINE 1000 ML 1,000 ML with POTASSIUM CHLORIDE 20 MEQ, MAGNESIUM SULFATE 8 MEQ,... IV SCH ×5 (17:33)
[2017-02-16] MEDS: HYDROMORPHONE HCL INJ/PF 2 MG/ML AMPULE IV PRN ×3 (04:15→12:51)
[2017-02-16 05:41] LABS: ABSOLUTE BASOPHILS # (AUTO) 0.1 10^3/uL (0.0-0.2); ABSOLUTE EOSINOPHILS # (AUTO) 0.2 10^3/uL (0.0-0.6); ABSOLUTE LYMPHOCYTES (AUTO) 2.1 10^3/uL (0.5-4.7); ABSOLUTE MONOCYTES (AUTO) 1.4 10^3/uL (0.1-1.4); ABSOLUTE NEUT (AUTO) 10.5 10^3/uL (1.7-8.2); BASOPHILS % (AUTO) 0.5 % (0-2); EOSINOPHILS % (AUTO) 1.2 % (0-6); HEMATOCRIT 36.8 % (37.9-51.0); HEMOGLOBIN 12.8 g/dL (13.5-17.0); HGB HCT DIFFERENCE 1.6; LYMPHOCYTES % (AUTO) 14.5 % (13-45); MEAN CORPUSCULAR HEMOGLOBIN 31.2 pg (27.0-33.4); MEAN CORPUSCULAR HGB CONC 34.6 g/dL (32.0-36.0); MEAN CORPUSCULAR VOLUME 90 fl (80-97); MONOCYTES % (AUTO) 9.5 % (3-13); RED BLOOD COUNT 4.09 10^6/uL (4.35-5.55); RED CELL DISTRIBUTION WIDTH 14.3 % (11.5-14.0); SEGMENTED NEUTROPHILS % (AUTO) 74.3 % (42-78); WHITE BLOOD COUNT 14.2 10^3/uL (4.0-10.5)
[2017-02-16 06:00] LABS: ALANINE AMINOTRANSFERASE 23 U/L (21-72); ALBUMIN 2.8 g/dL (3.5-5.0); ALKALINE PHOSPHATASE 64 U/L (38-126); ANION GAP 9 (5-19); ASPARTATE AMINO TRANSFERASE 16 U/L (17-59); BILIRUBIN,DIRECT 0.4 mg/dL (0.0-0.4); BILIRUBIN,TOTAL 0.8 mg/dL (0.2-1.3); BLOOD UREA NITROGEN 7 mg/dL (7-20); CALCIUM 8.6 mg/dL (8.4-10.2); CARBON DIOXIDE 21 mmol/L (22-30); CHLORIDE 108 mmol/L (98-107); CREATININE RESULT 0.62 mg/dL (0.52-1.25); GLUCOSE 123 mg/dL (75-110); POTASSIUM 3.9 mmol/L (3.6-5.0); SODIUM 137.9 mmol/L (137-145); TOTAL PROTEIN 5.5 g/dL (6.3-8.2)
[2017-02-16] MEDS: HEPARIN SOD (PORCINE) 5,000 UNIT/ML 1 ML SYRINGE SUBCUT SCH ×3 (07:31→22:29)
[2017-02-16] MEDS ORDERED: LORAZEPAM INJ 2 MG/1 ML VIAL IV PRN (08:00)
[2017-02-16] MEDS ORDERED: PROMETHAZINE HCL 25 MG SUPP.RECT PR PRN (08:00)
[2017-02-16] MEDS ORDERED: ONDANSETRON HCL INJ/PF 4 MG/2 ML SDV IV PRN (08:00)
[2017-02-16] MEDS ORDERED: FUROSEMIDE INJ/PF 20 MG/2 ML SDV IV ONE (08:00)
[2017-02-16] MEDS ORDERED: POTASSIUM PHOS,M-BASIC-D-BASIC 30 MMOL in NORMAL SALINE 500 ML IV ONE (08:27)
[2017-02-16] MEDS: NICOTINE 21 MG/24 HR PATCH.TD24 TD SCH (09:07)
[2017-02-16] MEDS: POTASSI CL 20 MEQ/D5-1/2NS 1L 1,000 ML IV PRN ×3 (09:07→22:29)
[2017-02-16] MEDS: PANTOPRAZOLE SODIUM 40 MG VIAL IV SCH (09:07)
[2017-02-16] MEDS: ERTAPENEM SODIUM 1 GM in NORMAL SALINE 50 ML IV SCH (13:34)
[2017-02-16] MEDS ORDERED: HYDROMORPHONE HCL INJ/PF 2 MG/ML AMPULE IV PRN (15:05)
--- NOTE | 2017-02-16 15:07 | PDOC PROGRESS REPORT ---
Subjective Progress Note for:: 02/16/17 Subjective:: Patient reports his pain is significantly improved. He would like to try taking oral today. Patient denies chest pain, shortness of breath, nausea, vomiting, fevers, chills , diarrhea, constipation, headache, new onset weakness. Physical Exam Vital Signs: Temp Pulse Resp BP Pulse Ox 98.1 F 77 16 135/84 H 97 02/16/17 11:52 02/16/17 11:52 02/16/17 07:44 02/16/17 11:52 02/16/17 11:52 Intake & Output 02/15/17 02/16/17 02/17/17 06:59 06:59 06:59 Intake Total 6028 7637 1600 Output Total 1200 2375 1850 Balance 4828 5267 -250 Weight 83.3 kg 85.7 kg Exam: General: Awake alert and oriented x3, no acute respiratory distress HEENT: AT/NC, PERRL, EOMI, oropharynx is moist, pink, no scleral icterus, no conjunctival injection Neck: No JVD, trachea midline Chest: Clear to auscultation bilaterally, no wheezes rhonchi or rales CV: Regular rate and rhythm, normal S1 and S2, no murmur, rub, or gallop Abdomen: Soft, NTTP, nondistended, hypoactive bowel sounds; no rebound, rigidity , guarding Extremities: No cyanosis, clubbing or edema Neuro: Cranial nerves II through XII are grossly intact without focal deficits; awake alert and oriented x3 Psych: Normal mood and affect Results Laboratory Results: 02/16/17 05:11 02/16/17 05:11 02/16/17 02/16/17 02/16/17 05:11 05:11 05:21 WBC 14.2 H RBC 4.09 L Hgb 12.8 L Hct 36.8 L MCV 90 MCH 31.2 MCHC 34.6 RDW 14.3 H Plt Count 268 Seg Neutrophils % 74.3 Lymphocytes % 14.5 Monocytes % 9.5 Eosinophils % 1.2 Basophils % 0.5 Absolute Neutrophils 10.5 H Absolute Lymphocytes 2.1 Absolute Monocytes 1.4 Absolute Eosinophils 0.2 Absolute Basophils 0.1 Sodium 137.9 Potassium 3.9 Chloride 108 H Carbon Dioxide 21 L Anion Gap 9 BUN 7 Creatinine 0.62 Est GFR ( Amer) > 60 Est GFR (Non-Af Amer) > 60 Glucose 123 H Calcium 8.6 Phosphorus 2.2 L Total Bilirubin 0.8 AST 16 L ALT 23 Alkaline Phosphatase 64 Total Protein 5.5 L Albumin 2.8 L Impressions: Abdomen Ultrasound 02/13/17 08:03 IMPRESSION: NORMAL RIGHT UPPER QUADRANT ULTRASOUND. Abdomen/Pelvis CT 02/15/17 00:00 IMPRESSION: 1. FINDINGS OF ACUTE PANCREATITIS. INDISTINCT AREA OF DECREASED ATTENUATION/ NONENHANCEMENT IN THE PANCREATIC HEAD COULD REPRESENT DEVELOPING CYST. SMALL FOCAL AREA OF NECROSIS COULD ALSO BE PRESENT. FREE FLUID IN THE ABDOMEN AND PELVIS SECONDARY TO PANCREATITIS. 2. NONENHANCING LOW-ATTENUATION AREA IN THE LEFT LOBE OF THE LIVER, POSSIBLY A CYST OR FOCAL FATTY REPLACEMENT. 3. NO OTHER SIGNIFICANT OR ACUTE FINDING IN THE ABDOMEN OR PELVIS ON CT SCAN WITH IV CONTRAST. Assessment & Plan - Diagnosis (1) Acute alcoholic pancreatitis Qualifiers: Acute pancreatitis complication: unspecified Qualified Code(s): K85.20 - Alcohol induced acute pancreatitis without necrosis or infection Is this a current diagnosis for this admission?: Yes Plan: Acute severe pancreatitis secondary to alcohol abuse. Patient transition to clear liquids today and decrease his Dilaudid. If he tolerates this we will advance his diet and switch to oral pain medication. Patient had triglycerides done approximately 1 year ago for similar episode and were mildly elevated. Patient has had ultrasound performed which does not reveal any gallstones. Stop patient's ertapenem. (2) SIRS (systemic inflammatory response syndrome) Is this a current diagnosis for this admission?: Yes Plan: Criteria: Selected Entries 02/13/17 07:40 Pulse Rate 93 02/13/17 08:18 WBC 25.0 H Given patient's presence of sirs have concern for underlying pancreatic necrosis +/- infection. Stop ertapenem (3) Acute renal failure Qualifiers: Acute renal failure type: unspecified Qualified Code(s): N17.9 - Acute kidney failure, unspecified Is this a current diagnosis for this admission?: Yes Plan: resolved 2/2 #1 (4) Tobacco abuse Is this a current diagnosis for this admission?: Yes (5) Alcohol abuse Is this a current diagnosis for this admission?: Yes (6) Hyponatremia Is this a current diagnosis for this admission?: Yes Plan: Improved Secondary to intravascular volume depletion placed on normal saline (7) Impaired fasting glucose Is this a current diagnosis for this admission?: Yes Plan: Hgb A1c 5 - Time Time Spent with patient: 25-34 minutes Medications reviewed and adjusted accordingly: Yes Anticipated discharge: Home Within: within 48 hours
[2017-02-16] MEDS: OXYCODONE-ACETAMINOPHEN 5-325 MG TABLET PO PRN ×2 (17:24→23:22)
[2017-02-16] MEDS: NORMAL SALINE 1000 ML 1,000 ML with POTASSIUM CHLORIDE 20 MEQ, MAGNESIUM SULFATE 8 MEQ,... IV SCH ×5 (17:25)
[2017-02-17] MEDS: HEPARIN SOD (PORCINE) 5,000 UNIT/ML 1 ML SYRINGE SUBCUT SCH ×2 (05:44→14:18)
[2017-02-17] MEDS: POTASSI CL 20 MEQ/D5-1/2NS 1L 1,000 ML IV PRN (05:44)
[2017-02-17] MEDS: OXYCODONE-ACETAMINOPHEN 5-325 MG TABLET PO PRN ×2 (06:38→13:30)
[2017-02-17] MEDS: PANTOPRAZOLE SODIUM 40 MG VIAL IV SCH (09:03)
[2017-02-17] MEDS: NICOTINE 21 MG/24 HR PATCH.TD24 TD SCH (09:03)
[2017-02-17 13:42] VITALS: BP 176/95
--- NOTE | 2017-02-17 16:02 | PDOC DISCHARGE SUMMARY ---
General - Admit/Disc Date/PCP Admission Date/Primary Care Provider: 02/13/17 09:55 Discharge Date: 02/17/17 - Discharge Diagnosis (1) Acute pancreatitis Summary: The patient feels better this morning. He denies any abdominal pain. He has been on a full liquid diet and able to tolerate things such as grits. He was cautioned to refrain from any further alcohol consumption. He states that he understands and that he agrees. He will need to follow-up with [facility] or health department at discharge. (2) Alcohol abuse Is this a current diagnosis for this admission?: Yes Summary: Alcohol cessation was advised. I did have a detailed conversation about stopping alcohol consumption. The patient was in agreement with this. He states that he had discontinued liquor after the first bout of pancreatitis. He thought that consuming beer would be less of an insult. He states now that he will stop beer altogether. He was cautioned that he likely has a small pseudocyst developing on the pancreas and that he will need to be followed for this. (3) Hyponatremia Is this a current diagnosis for this admission?: Yes Summary: Resolved. Likely secondary to underlying pancreatitis. (4) Impaired fasting glucose Is this a current diagnosis for this admission?: Yes Summary: Hemoglobin A1c was 5. This is likely a stress response. (5) SIRS (systemic inflammatory response syndrome) Is this a current diagnosis for this admission?: Yes Summary: Resolved. White blood cell count is 14 at discharge. This is down from 25. (6) Tobacco abuse Is this a current diagnosis for this admission?: Yes Summary: Smoking cessation was advised. - Additional Information Resuscitation Status: Full Code Discharge Diet: As Tolerated Discharge Activity: Activity As Tolerated Home Medications: Ibuprofen [Ibuprofen Ib] 800 mg PO DAILYP PRN 02/13/17 Nicotine [Nicoderm 21 mg/24 Hr Transderm Patch] 1 each TD DAILY patch.[id number] History of Present Illness History of Present Illness: KANDI BURNS III is a 36 year old male who was admitted to the hospitalist service for his second bout of acute alcoholic pancreatitis. Please see the the admitting providers HPI below for details of the admission. no pcp History of Present Illness: KANDI UBRNS III is a 36 year old male with a past medical history significant for prior alcoholic pancreatitis who presents to the emergency department with 2 or 3 days of nausea, vomiting and midepigastric pain. He reports it radiates through to his back. He reports that significant vomiting episodes with this. An attempt to control his symptoms he was taking between 600 and 800 mg of Motrin 3 times daily. Patient reports that he drinks 1 beer daily, but his significant other confides to nursing that he drinks a minimum of 4 beers daily. He has not been able to drink since the onset of this pain. Patient was found in the emergency department to have a lipase of 2888 and acute renal failure with a BUN of 44 and a creatinine of 2.1. He is referred to the hospitalist service for admission. Hospital Course Hospital Course: The patient was admitted to the hospital and initially made n.p.o. This allowed him to have abdominal rest. He was treated with as needed narcotic medications for control of his pain associated with his pancreatitis. CT scan of the abdomen did show possible cyst on the pancreas. The patient freely admits that he over drinks. He states that after his first bout of pancreatitis he thought that discontinuation of liquor in favor of beer would be the appropriate treatment. He was cautioned that he would need to stop alcohol altogether. After his pain subsided he was transitioned to clear liquids and then to full liquids. The patient was able to tolerate a bland diet prior to discharge. He will need to follow-up with his PCP. Physical Exam Vital Signs: Temp Pulse Resp BP Pulse Ox 97.9 F 64 16 176/95 H 100 02/17/17 13:40 02/17/17 13:40 02/17/17 13:40 02/17/17 13:40 02/17/17 13:40 Intake & Output 02/16/17 02/17/17 02/18/17 06:59 06:59 06:59 Intake Total 8725 8555 Output Total 8928 0620 Balance 5270 8785 Weight 85.7 kg 86.2 kg GENERAL: This is a well-developed well-nourished appearing white male sitting up in bed currently in no acute distress. HEART: Regular rate and rhythm. No murmurs, rubs or gallops. LUNGS: Clear to auscultation bilaterally with equal rise and fall of the chest. ABDOMEN: Soft, nontender, nondistended with normoactive bowel sounds EXTREMETIES: No clubbing, cyanosis or edema. 2+ peripheral pulses bilaterally. NEURO: Awake, alert and oriented 3. Cranial nerves II through XII are grossly intact. Results Laboratory Results: 02/16/17 05:11 02/16/17 05:11 Impressions: Abdomen Ultrasound 02/13/17 08:03 IMPRESSION: NORMAL RIGHT UPPER QUADRANT ULTRASOUND. Abdomen/Pelvis CT 02/15/17 00:00 IMPRESSION: 1. FINDINGS OF ACUTE PANCREATITIS. INDISTINCT AREA OF DECREASED ATTENUATION/ NONENHANCEMENT IN THE PANCREATIC HEAD COULD REPRESENT DEVELOPING CYST. SMALL FOCAL AREA OF NECROSIS COULD ALSO BE PRESENT. FREE FLUID IN THE ABDOMEN AND PELVIS SECONDARY TO PANCREATITIS. 2. NONENHANCING LOW-ATTENUATION AREA IN THE LEFT LOBE OF THE LIVER, POSSIBLY A CYST OR FOCAL FATTY REPLACEMENT. 3. NO OTHER SIGNIFICANT OR ACUTE FINDING IN THE ABDOMEN OR PELVIS ON CT SCAN WITH IV CONTRAST. Qualifiers PATEINT BEING DISCHARGED WITH ANY OF THE FOLLOWING DIAGNOSIS?: No Plan Time Spent: Less than 30 Minutes
== END 2017-02-17 14:29 | disposition home or self-care (01) | DRG 439 ==
LOC: ER 07:34 → EH 09:55 → UNDOADMIN 10:08 → 3N 11:01
PROVIDERS: ADMIT Internal Medicine; ATTEND Internal Medicine
DX: K85.20 Alcohol induced acute pancreatitis without necrosis or infection (principal); N17.9 Acute kidney failure, unspecified; R65.10 Systemic inflammatory response syndrome (SIRS) of non-infectious origin without acute organ dysfunction; E87.1 Hypo-osmolality and hyponatremia; F10.10 Alcohol abuse, uncomplicated; R73.01 Impaired fasting glucose; K21.9 Gastro-esophageal reflux disease without esophagitis; F17.210 Nicotine dependence, cigarettes, uncomplicated
CPT/HCPCS: 36415; 74176; 74177; 76705; 80053; 81001; 82962; 83036; 83615; 83690; 83735; 84100; 85025; 86140; 87086; 89190; 96361; 96374; 96375; 96376; 99285; J1170; J1335; J1644; J1940; J2060; J2405; J3411; J3475; J3480; J3490; J7030; J7040; S0164

== ENCOUNTER 2018-09-11 05:04 | Emergency (ER) | payer SELFPAY ==
[2018-09-11 05:09] VITALS: BP 147/76
[2018-09-11] MEDS ORDERED: LIDOCAINE 1% INJ (10 MG/ML) 10 ML MDV INJ ONE (05:18)
[2018-09-11] MEDS ORDERED: BUPIVACAINE HCL 0.5 % INJ/PF 30 ML SDV INJ ONE (05:18)
[2018-09-11] MEDS ORDERED: LIDOCAINE 1% INJ-PF (10 MG/ML) 30 ML SDV ONE (05:48)
--- NOTE | 2018-09-11 06:23 | ER Document Report ---
Entered by ÓSCAR RALPH SCRIBE 09/11/18 0518 Acting as scribe for:BC FLORIAN DO ED Oral Problem - General Chief Complaint: Toothache Stated Complaint: TOOTH PAIN Time Seen by Provider: 09/11/18 05:13 Mode of Arrival: Ambulatory Information source: Patient Notes: 37-year-old male that presents to the emergency department today with complaints of dental pain. Patient states that it seems like "he can feel his heart beating in this tooth". Patient states he has been having this pain for a couple of months but it did not hurt for "very long and would go several days without hurting". Patient states that this pain began again tonight around midnight and has not stopped. Patient denies any drainage from this area. Denies any trauma to the area. TRAVEL OUTSIDE OF THE [place] IN LAST 30 DAYS: No - Related Data Allergies/Adverse Reactions: No Known Allergies Allergy (Verified 09/11/18 05:30) Past Medical History - General Information source: Patient - Social History Smoking Status: Current Every Day Smoker Cigarette use (# per day): Yes Frequency of alcohol use: None Drug Abuse: None Lives with: Family Family History: Reviewed & Not Pertinent, DM, Malignancy Renal/ Medical History: Denies: Hx Peritoneal Dialysis GI Medical History: Reports: Hx Gastroesophageal Reflux Disease Musculoskeletal Medical History: Reports Hx Musculoskeletal Deformity, Reports Hx Musculoskeletal Trauma Past Surgical History: Reports: Hx Orthopedic Surgery - left knee - Immunizations Immunizations up to date: Yes Hx Diphtheria, Pertussis, Tetanus Vaccination: Yes - over 5 years ago. Review of Systems - Review of Systems Constitutional: No symptoms reported EENT: See HPI, Dental problem Cardiovascular: No symptoms reported Respiratory: No symptoms reported Gastrointestinal: No symptoms reported Genitourinary: No symptoms reported Male Genitourinary: No symptoms reported Musculoskeletal: No symptoms reported Skin: No symptoms reported Hematologic/Lymphatic: No symptoms reported Neurological/Psychological: No symptoms reported -: Yes All other systems reviewed and negative Physical Exam - Vital signs Vitals: Temp Pulse Resp BP Pulse Ox 97.9 F 58 L 18 147/76 H 98 09/11/18 05:07 09/11/18 05:07 09/11/18 05:07 09/11/18 05:07 09/11/18 05:07 Interpretation: Hypertensive - Notes Notes: PHYSICAL EXAM GENERAL: Alert, interacts well. No acute distress. HEAD: Normocephalic, atraumatic. EYES: Pupils equal, round, and reactive to light. Extraocular movements intact. ENT: Oral mucosa moist, tongue midline. Tooth #31 has a superficial crack and is tender with palpation. No surrounding abscess. No erythema, no drainage from the gumline. NECK: Full range of motion. Supple. Trachea midline. LUNGS: No respiratory distress. EXTREMITIES: Moves all 4 extremities spontaneously. NEUROLOGICAL: Alert and oriented x3. Normal speech. PSYCH: Normal affect, normal mood. SKIN: Warm, dry, normal turgor. No rashes or lesions noted. Course - Re-evaluation Re-evalutation: 09/11/18 06:02 No evidence of infection, will treat pain with dental block. Patient was given an inferior alveolar block on the right-hand side using a 50-50 mix of bupivacaine and lidocaine. Patient tolerated it well, will be discharged home with a prescription for Tessalon Perles to poke a hole and and let it seep out over his tooth. Patient is discharged home and referred to dentist. - Vital Signs Vital signs: Temp Pulse Resp BP Pulse Ox 97.9 F 58 L 18 147/76 H 98 09/11/18 05:07 09/11/18 05:07 09/11/18 05:07 09/11/18 05:07 09/11/18 05:07 Discharge - Discharge Clinical Impression: Dental implant pain Qualifiers: Encounter type: initial encounter Qualified Code(s): T85.848A - Pain due to other internal prosthetic devices, implants and grafts, initial encounter Condition: Stable Disposition: HOME, SELF-CARE Additional Instructions: Toothache Your pain is due to dental decay. The tooth must be repaired in order for you to feel better. You will, therefore, be referred to a dentist. There is no evidence of infection. You have been prescribed Tessalon Perles. Please use a needle to poke a small hole in 1 of these and then hold it over top of the most painful tooth. Do not chew on it. This will help to numb your tooth. You should be rechecked immediately if you develop major swelling of the face, increasing pain, a lump in the jaw or gums, headache, or fever. Prescriptions: Benzonatate [Tessalon Perles 100 mg Capsule] 100 mg PO Q8HP PRN #20 capsule PRN Reason: I personally performed the services described in the documentation, reviewed and edited the documentation which was dictated to the scribe in my presence, and it accurately records my words and actions.
== END 2018-09-11 06:00 | disposition home or self-care (01) ==
LOC: ER 05:04
DX: T85.848A Pain due to other internal prosthetic devices, implants and grafts, initial encounter (principal); Y82.8 Other medical devices associated with adverse incidents; K03.81 Cracked tooth; F17.210 Nicotine dependence, cigarettes, uncomplicated
CPT/HCPCS: 99282; 64400; J3490